=== PATIENT | male | born 1970 | race Caucasian/White ===

== ENCOUNTER 2017-06-04 15:17 | Emergency (ER) | payer BC ==
[~2017-06-04] VITALS: Ht 182.9 cm; Wt 116.4 kg
[2017-06-04 15:44] LABS: HEMATOCRIT 44.8 % (38.0-50.0); HEMOGLOBIN 15.9 G/DL (12.5-16.6); MCH 34.1 PG (29.0-34.0); MCHC 35.5 G/DL (30.0-36.0); MCV 96.1 FL (86-99); PLATELET COUNT 192 K/uL (156-360); RBC DIS.WIDTH-CV 12.4 % (11.8-14.6); RBC DIS.WIDTH-SD 43.7 % (39-53); RED BLOOD COUNT 4.66 M/uL (4.00-5.50); WHITE BLOOD COUNT 7.4 K/uL (4.1-10.2)
[2017-06-04 15:55] LABS: CHLORIDE 100 mEq/L (99-109); POTASSIUM 4.3 mEq/L (3.7-5.4); SODIUM 137 mEq/L (136-147)
[2017-06-04 15:58] LABS: GLUCOSE 227 mg/dL (70-99); TOTAL PROTEIN 7.6 g/dL (6.4-8.3)
[2017-06-04 15:59] LABS: TOTAL BILIRUBIN 0.5 mg/dL (0.0-1.0)
[2017-06-04 16:01] LABS: ALKALINE PHOSPHATASE 85 IU/L (3-129); CREATININE 0.9 mg/dL (0.6-1.3); GFR ESTIMATE (CALCULATED) > 59 mL/min/ (58.99-99999)
[2017-06-04 16:02] LABS: UREA NITROGEN (BUN) 11 mg/dL (9-23)
[2017-06-04 16:03] LABS: AST (GOT) 116 IU/L (2-34)
[2017-06-04 16:04] LABS: ALT (GPT) 144 IU/L (3-49)
[2017-06-04 17:13] LABS: TROP-I INTERPRETATION NEGATIVE; TROPONIN-I 0.03 ng/mL (0.0-0.30)
[2017-06-04 18:54] LABS: TROP-I INTERPRETATION NEGATIVE; TROPONIN-I 0.04 ng/mL (0.0-0.30)
[2017-06-04 21:07] LABS: TROP-I INTERPRETATION NEGATIVE; TROPONIN-I 0.04 ng/mL (0.0-0.30)
[2017-06-04] MEDS ORDERED: NORVASC5 MG PO (21:31)
[2017-06-04 21:50] VITALS: BP 164/99
== END 2017-06-04 21:55 | disposition home or self-care (01) ==
LOC: EME 15:17
PROVIDERS: Emergency Medicine
DX: I10 Essential (primary) hypertension (principal); R60.0 Localized edema; F17.200 Nicotine dependence, unspecified, uncomplicated
CPT/HCPCS: 71046; 80053; 81003; 83880; 84484; 85027; 93005; 99281; 99284